=== PATIENT | female | born 1970 | race Caucasian/White ===

== ENCOUNTER 2021-02-22 02:34 | Emergency (ER) | payer OTHER ==
[~2021-02-22] VITALS: Ht 165.1 cm; Wt 83.9 kg
[2021-02-22 02:50] VITALS: BP 125/73
--- NOTE | 2021-02-22 02:50 | NUR ---
TO [facility] AMBULATORY
[2021-02-22] MEDS ORDERED: methylPREDNISolone SS 125 MG/2 ML VIAL IVP ONE (03:15)
[2021-02-22] MEDS ORDERED: VANCOMYCIN 1,000 MG in DEXTROSE 5% 250 ML IV ONE (03:15)
--- NOTE | 2021-02-22 03:15 | NUR ---
SEEN AND EXAMINED BY JORDAN WITH ORDERS AND CARRIED OUT
[2021-02-22 03:29] LABS: BASOPHILS # (AUTO) 0.1 K/uL (0.00-0.22); BASOPHILS % (AUTO) 0.6 % (0.0-2.0); EOSINOPHILS # (AUTO) 0.4 K/uL (0-0.4); EOSINOPHILS % (AUTO) 3.2 % (0.0-4.0); HEMATOCRIT 35.2 % (36-48); HEMOGLOBIN 11.7 g/dL (12.0-16.0); LYMPHOCYTES # (AUTO) 3.7 K/uL (2.5-16.5); LYMPHOCYTES % (AUTO) 29.2 % (20.5-51.1); MEAN CORPUSCULAR HEMOGLOBIN 32 pg (27-31); MEAN CORPUSCULAR HGB CONC 33 g/dL (33-37); MONOCYTES # (AUTO) 1.1 K/uL (0.8-1.0); MONOCYTES % (AUTO) 8.3 % (1.7-9.3); NEUTROPHILS # (AUTO) 7.5 K/uL (1.8-7.7); NEUTROPHILS % (AUTO) 58.7 % (42.2-75.2); PLATELET COUNT (AUTO) 518 K/uL (140-450); RED CELL DISTRIBUTION WIDTH 13.5 % (11.6-13.7); WHITE BLOOD COUNT (AUTO) 12.8 K/uL (4.8-10.8)
[2021-02-22] MEDS ORDERED: VANCOMYCIN 1,000 MG VIAL ONE (03:43)
[2021-02-22 03:44] LABS: ALBUMIN 3.6 g/dL (3.4-5.0); ANION GAP 11.7 (8-16); CREATININE 1.1 mg/dL (0.6-1.3); POTASSIUM 3.7 mmol/L (3.5-5.1); TOTAL BILIRUBIN 0.2 mg/dL (0.0-1.0)
--- NOTE | 2021-02-22 03:50 | NUR ---
MEDICATED PER ERMDS ORDER, TOLERATED WELL
[2021-02-22] MEDS ORDERED: PRED20TA5 PO (04:19)
[2021-02-22] MEDS ORDERED: diphenhydrAMINE 50 MG/ML VIAL IVP ONE (05:00)
[2021-02-22] MEDS ORDERED: FAMOTIDINE 20 MG/2 ML VIAL IVP ONE (05:00)
[2021-02-22 06:00] VITALS: BP 125/73
== END 2021-02-22 06:00 | disposition home or self-care (01) ==
LOC: MED 02:34
DX: R21 Rash and other nonspecific skin eruption (principal)
CPT/HCPCS: 36415; 80053; 85025; 96365; 96375; 99284; J1200; J2930; J3370; J3490